=== PATIENT | female | born 1945 | race Caucasian/White ===

== ENCOUNTER 2022-07-10 08:25 | Day surgery (SDC) | payer MEDICARE, SELFPAY ==
[2022-07-04 14:47] VITALS: BMI 24.4
--- NOTE | 2022-07-05 12:49 | HO.ANESPROP2 ---
HPI - Anesthesia Eval Consult details Narrative: 68yo F for Right Laminectomy Lumbar Decompression L3-4, L4-5 Per 09/2021 cardiac office visit note. Stable Prinzmetal angina - rare and resolves promptly with NTG. Previous CP thought to be coronary vasospasm. All previous extensive w/u shows no CAD and no pulm htn. [facility] Past Medical History Medical History (Updated 07/10/22 @ 12:25 by ANDREEA Carmen) Anxiety Diastolic heart failure Elevated cholesterol Goiter History of GI bleed HTN (hypertension) Insomnia Iron deficiency anemia Low back pain Migraine Multiple nodules of lung Non-toxic multinodular goiter Osteoporosis Postnasal drip Pre-diabetes Prinzmetal angina Pulmonary hypertension Surgical History Surgical History (Updated 07/05/22 @ 11:28 by Rekha Aguilar RN) History of esophagogastroduodenoscopy (EGD) History of excision of mass Hx of blepharoplasty Hx of cardiac catheterization Hx of colonoscopy Social History Social History Are you a primary healthcare administration intern to a significant other at home: No Do you presently have visiting nurse or other home services: No Patient Tobacco Use Status: Never used Tobacco Meds Allergies Allergy/AdvReac Type Severity Reaction Status Date / Time No Known Allergies Allergy Verified 07/05/22 12:55 Home Medications Medication Instructions Recorded Confirmed Last Taken Type cholecalciferol (vitamin D3) 25 1,000 unit PO DAILY 07/04/22 07/04/22 Unknown History mcg (1,000 unit) capsule (Vitamin D3) cyanocobalamin (vitamin B-12) 500 500 mcg PO DAILY 07/04/22 07/04/22 Unknown History mcg tablet (Vitamin B-12) fluoxetine 20 mg capsule 20 mg PO BID 07/04/22 07/04/22 Unknown History lisinopril 2.5 mg tablet 2.5 mg PO DAILY 07/04/22 07/04/22 Unknown History multivitamin 1 tab PO DAILY 07/04/22 07/04/22 Unknown History nitroglycerin 0.4 mg sublingual mg sublingual 07/04/22 Unknown History tablet omeprazole 20 mg capsule,delayed 20 mg PO BID PRN Gastric Reflux 07/04/22 07/04/22 Unknown History release rosuvastatin 10 mg tablet 10 mg PO DAILY 07/04/22 07/04/22 Unknown History zolpidem 5 mg tablet 5 mg PO BEDTIME PRN Insomnia 07/04/22 07/04/22 Unknown History Vitamin B-2 07/05/22 07/05/22 Unknown History aspirin 81 mg tablet,delayed 81 mg PO DAILY 07/05/22 07/05/22 07/03/22 History release famotidine 20 mg tablet 20 mg PO BID 07/05/22 07/05/22 Unknown History fluticasone propionate 50 2 spray intranasal DAILY 07/05/22 07/05/22 Unknown History mcg/actuation nasal spray,suspension ibuprofen 600 mg tablet mg 07/05/22 07/03/22 History lidocaine 5 % topical patch 1 patch topical DAILY 07/05/22 07/05/22 Unknown History magnesium oxide 400 mg PO DAILY 07/05/22 07/05/22 Unknown History nitroglycerin 0.4 mg sublingual 0.4 mg sublingual Q5M PRN Chest 07/05/22 07/05/22 Unknown History tablet Pain Exam Exam Date and Time: July 05, 2022 1249 Height,Weight and Vital Signs: Height 5 ft Weight 56.699 kg Assessment and Plan Assessment Anesthesia Assessment: Chart Reviewed
[2022-07-10] VITALS (12 sets, daily range): BP systolic 111–139; BP diastolic 66–84; PULSE 64–79; RESP 16; TEMP 36.1–36.6; O2SAT 95–98
--- NOTE | 2022-07-10 | ECG_ITS ---
Test Reason : Pre-op Blood Pressure : / mmHG Vent. Rate : 068 BPM Atrial Rate : 068 BPM P-R Int : 186 ms QRS Dur : 094 ms QT Int : 410 ms P-R-T Axes : 054 021 051 degrees QTc Int : 435 ms Normal sinus rhythm Normal ECG No previous ECGs available Referred By: Sweta Mccormick Electronically Signed By:CARLA FREEMAN
--- NOTE | ~2022-07-10 | FL_ITS ---
EXAMINATION: XR FLUOROSCOPY WITH IMAGES CLINICAL INFORMATION: Laminectomy lumbar decompression right COMPARISON: MRI lumbar spine 11/20/2021 TECHNIQUE: Fluoroscopy Supervised By: Dr. Juan Ames. Fluoroscopy Time: Under 1 minute. Cumulative Dose: 2.52 mGy. DAP: 0.0424 Gycm2. Images: 1. FINDINGS: There is are metallic pointer and a cannula overlying posterior elements lower lumbar spine approximately L4-L5. There are degenerative disc changes with borderline grade 0-1 spondylolisthesis L4-L5 similar to the MR. FL/FL guidance in OR IMPRESSION: Fluoroscopy for neurosurgical procedure.
[2022-07-10 08:47] LABS: Hematocrit 38.8 % (37.0-47.0); Hemoglobin 12.9 g/dl (12.0-16.0); Mean Corpuscular HGB Conc 33.2 g/dl (31.0-35.0); Mean Corpuscular Volume 87.2 fL (80.0-98.0); Mean Platelet Volume 8.8 fL (9.4-12.3); Platelet Count 242 X10*3/uL (160-400); Red Blood Count 4.45 X10*6/uL (4.20-5.50); Red Cell Distribution Width 14.9 % (11.0-16.0); White Blood Count 5.7 X10*3/uL (4.8-10.8)
[2022-07-10] MEDS: methocarbamoL 750 MG TABLET PO (09:02)
[2022-07-10] MEDS: Gabapentin 300 MG CAPSULE PO (09:02)
[2022-07-10] MEDS: Lactated Ringers 1,000 ML 50 ML IVCONT (09:03)
[2022-07-10 09:08] LABS: Anion Gap 12 (12-20); Blood Urea Nitrogen 16 mg/dL (9-16); Calcium 9.3 mg/dL (8.4-10.2); Carbon Dioxide 24 mmol/L (22-29); Chloride 110 mmol/L (96-108); Creatinine Clr Calc Pharmacy 46.1; Estimated Glomerular Filt Rate > 60; Glucose Fasting 103 mg/dL (60-99); Potassium 4.1 mmol/L (3.3-5.1); Sodium 142 mmol/L (135-145)
--- NOTE | 2022-07-10 10:08 | P.CONAN_ITS ---
[facility] Past Medical History Medical History (Updated 07/04/22 @ 16:28 by Rekha Aguilar RN) Anxiety Diastolic heart failure Elevated cholesterol Goiter History of GI bleed HTN (hypertension) Insomnia Iron deficiency anemia Low back pain Migraine Multiple nodules of lung Non-toxic multinodular goiter Osteoporosis Postnasal drip Pre-diabetes Prinzmetal angina Pulmonary hypertension Family History Family history of problems with anesthesia: No Surgical History Surgical History (Updated 07/05/22 @ 11:28 by Rekha Aguilar, RN) History of esophagogastroduodenoscopy (EGD) History of excision of mass Hx of blepharoplasty Hx of cardiac catheterization Hx of colonoscopy History of Problems with Anesthesia: No Social History Social History Are you a primary respiratory care assistant to a significant other at home: No Do you presently have visiting nurse or other home services: No Patient Tobacco Use Status: Never used Tobacco Use of substances other than those prescribed or required for medical reasons: No Are you DNR?: No Advance Directives: No Advance Directives Information Provided: Yes Advance Directives on File: No Recently lost weight without trying: Yes How much weight loss: 2-13 pounds Meds Allergies Allergy/AdvReac Type Severity Reaction Status Date / Time No Known Allergies Allergy Verified 07/05/22 12:55 Active Medications: Current Medications Lactated Ringer's (Lr) 1,000 mls @ 50 mls/hr IVCONT .Q20H VICTORIA Last Admin: 07/10/22 09:03 Dose: 50 mls/hr Home Medications Medication Instructions Recorded Confirmed Last Taken Type cholecalciferol (vitamin D3) 25 1,000 unit PO DAILY 07/04/22 07/04/22 Unknown History mcg (1,000 unit) capsule (Vitamin D3) cyanocobalamin (vitamin B-12) 500 500 mcg PO DAILY 07/04/22 07/04/22 Unknown History mcg tablet (Vitamin B-12) fluoxetine 20 mg capsule 20 mg PO BID 07/04/22 07/04/22 Unknown History lisinopril 2.5 mg tablet 2.5 mg PO DAILY 07/04/22 07/04/22 Unknown History multivitamin 1 tab PO DAILY 07/04/22 07/04/22 Unknown History nitroglycerin 0.4 mg sublingual mg sublingual 07/04/22 Unknown History tablet omeprazole 20 mg capsule,delayed 20 mg PO BID PRN Gastric Reflux 07/04/2207/04 Unknown History release rosuvastatin 10 mg tablet 10 mg PO DAILY 07/04/22 07/04/22 Unknown History zolpidem 5 mg tablet 5 mg PO BEDTIME PRN Insomnia 07/04/22 07/04/22 Unknown History Vitamin B-2 07/05/22 07/05/22 Unknown History aspirin 81 mg tablet,delayed 81 mg PO DAILY 07/05/22 07/05/22 07/03/22 History release famotidine 20 mg tablet 20 mg PO BID 07/05/22 07/05/22 Unknown History fluticasone propionate 50 2 spray intranasal DAILY 07/05/22 07/05/22 Unknown History mcg/actuation nasal spray,suspension ibuprofen 600 mg tablet mg 07/05/22 07/03/22 History lidocaine 5 % topical patch 1 patch topical DAILY 07/05/22 07/05/22 Unknown History magnesium oxide 400 mg PO DAILY 07/05/22 07/05/22 Unknown History nitroglycerin 0.4 mg sublingual 0.4 mg sublingual Q5M PRN Chest 07/05/22 07/05/22 Unknown History tablet Pain Exam Exam Date and Time: July 10, 2022 1008 Height,Weight and Vital Signs: Height 5 ft Weight 56.699 kg Last Vital Signs Temp 96.9 F 07/10/22 08:56 Pulse 70 07/10/22 08:56 Resp 16 07/10/22 08:56 BP 127/84 07/10/22 08:56 Pulse Ox 97 07/10/22 08:56 O2 Del Method Room Air 07/10/22 08:56 Pertinent Lab Results Pertinent Lab Results: Laboratory Tests 07/10/22 07/10/22 08:41 08:41 WBC 5.7 RBC 4.45 Hgb 12.9 Hct 38.8 MCV 87.2 MCH 29.0 MCHC 33.2 RDW 14.9 Plt Count 242 MPV 8.8 L Absolute Nucleated RBC 0.000 Nucleated RBC % (auto) 0.0 Sodium 142 Potassium 4.1 Chloride 110 H Carbon Dioxide 24 Anion Gap 12 BUN 16 Creatinine 0.78 Estim Creat Clear Calc 46.1 Estimated GFR > 60 Fasting Glucose 103 H Calcium 9.3 Airway Mallampati Class: II TM Dist: >3cm Neck ROM: Limited Loose/Missing/Broken Teeth: No Heart: rrr Lungs: cta Assessment and Plan Assessment Anesthesia Assessment: Anesthesia Plan Discussed and Chart Reviewed Final Anesthetic Review Family History of Problems with Anesthesia: No History of Problems with Anesthesia: No NPO: Yes ASA Class: III Final Preanesthetic Review: No Changes in Pt Med Stat, Meds/Allgs Chart Reviewed, Consent Obtained/Reviewed and Anes Risks/Benef Reviewed Patient Risk: Intermediate Procedure Risk: Intermediate Anesthetic Plan Anesthetic Plan: GA and Agree w/ Assess. and Plan Disposition: Standard PACU
--- NOTE | 2022-07-10 12:24 | PM.DS ---
DS: Providers Provider Date of Service: 07/10/22 Date of discharge: 07/10/22 Primary care physician: Maria Teresa Cruz MD Admitting clinician: Juan Ames DS: Diagnosis Discharge Diagnosis (1) Lumbar stenosis: Status: Acute DS: Summary Time Spent with Patient Time attestation: Total time managing care of this patient today ____ minutes. Discharge coordination time: Less than 30 minutes Quality: Safe Use of Opioids Does Pt have an Active Cancer Diagnosis on the Problem List?: No Quality: Stroke Does the patient have a stroke diagnosis?: No Physical Exam Vital Signs: Vital Signs: Last Vital Signs Temp 96.9 F 07/10/22 08:56 Pulse 70 07/10/22 08:56 Resp 16 07/10/22 08:56 BP 127/84 07/10/22 08:56 Pulse Ox 97 07/10/22 08:56 O2 Del Method Room Air 07/10/22 08:56 BMI result Body Mass Index 24.4 DS: Data Data Completed and Pending Labs on day of discharge: Laboratory Results - last 24 hr 07/10/22 07/10/22 08:41 08:41 WBC 5.7 RBC 4.45 Hgb 12.9 Hct 38.8 MCV 87.2 MCH 29.0 MCHC 33.2 RDW 14.9 Plt Count 242 MPV 8.8 L Absolute Nucleated RBC 0.000 Nucleated RBC % (auto) 0.0 Sodium 142 Potassium 4.1 Chloride 110 H Carbon Dioxide 24 Anion Gap 12 BUN 16 Creatinine 0.78 Estim Creat Clear Calc 46.1 Estimated GFR > 60 Fasting Glucose 103 H Calcium 9.3 Discharge Plan Discharge Patient Disposition: Home, Self-Care Referrals: Maria Teresa Cruz MD [Primary Care Provider] - 1 Week Discharge Medications: New oxycodone 5 mg tablet 5 mg PO Q4H PRN (Reason: pain) Qty: 30 0RF Rx Instructions: Partial Fill upon patient request. docusate sodium [Colace] 100 mg capsule 100 mg PO BID Qty: 20 0RF oxycodone 5 mg tablet 5 mg PO Q4H PRN (Reason: pain) Qty: 30 0RF Rx Instructions: Partial Fill upon patient request. Continued multivitamin Tablet 1 tab PO DAILY cyanocobalamin (vitamin B-12) [Vitamin B-12] 500 mcg Tablet 500 mcg PO DAILY nitroglycerin 0.4 mg tablet, sublingual sublingual zolpidem 5 mg tablet 5 mg PO BEDTIME PRN (Reason: Insomnia) fluoxetine 20 mg capsule 20 mg PO BID lisinopril 2.5 mg tablet 2.5 mg PO DAILY cholecalciferol (vitamin D3) [Vitamin D3] 25 mcg (1,000 unit) Capsule 1,000 unit PO DAILY rosuvastatin 10 mg tablet 10 mg PO DAILY omeprazole 20 mg capsule,delayed release(DR/EC) 20 mg PO BID PRN (Reason: Gastric Reflux) aspirin 81 mg Tablet,Delayed Release (Dr/Ec) 81 mg PO DAILY famotidine 20 mg Tablet 20 mg PO BID lidocaine 5 % adhesive patch,medicated 1 patch topical DAILY ibuprofen 600 mg Tablet fluticasone propionate 50 mcg/actuation [place],Suspension 2 spray INTRANASAL DAILY Rx Instructions: administer into each nostril nitroglycerin 0.4 mg Tablet, Sublingual 0.4 mg SUBLINGUAL Q5M PRN (Reason: Chest Pain) Rx Instructions: do not exceed 3 doses per episode Vitamin B-2 magnesium oxide 400 mg magnesium Tablet 400 mg PO DAILY Discharge Orders: Discharge Order (Routine); Ordered 07/10/22 Ordered By: Bean Granados Diet: Advance to usual diet Activity on Discharge: As tolerated Activity Restrictions/Additional Instructions: After your spinal surgery we ask you to observe the following restrictions/guidelines: Activity: It is normal to feel some discomfort as you increase your activity, but that will improve with time. We ask you avoid heavy lifting or acitivities that cause pain. As a general rule, 8lbs is a safe limit for lifting right after surgery. Walk as much as you feel comfortable but not to exhaustion. You will feel extra tired the first few days after surgery. Stay well hydrated. It is OK to walk up and down stairs You may return to driving when you are off narcotics (such as vicodin, oxycodone, dilaudid, etc), and you are back to normal functional capacity. If you have any concerns please check with office before driving. Return to work is specific to each patient and each surgery, so please speak with your doctor/PA at first follow up. Please bring paperwork such as FMLA at that time if you need it filled out. Medications: We will give you a short supply of narcotics after surgery (usually one weeks worth). If you need more please call the office but do not use more than prescribed. You will need to give our office 48 hours notice if you need narcotics refilled and we do not fill narcotics on weekends or evenings. If you are on a narcotic, it is a good idea to take a stool softener such as colace or senna to avoid constipation If you take blood thinner such as aspirin, Plavix, Coumadin, Effient, Eliquis etc for conditions such as Afib, DVT, Pulmonary embolus, coronary disease, stents etc please speak with your surgeon about specific details as to when you can resume these medications. You can resume NSAIDs on post op day 1 (eg: Motrin, Naproxen, etc). Follow up: Please call the office, , after surgery to arrange a 3 week follow up for wound check. Wound Care: You may remove your dressing on the first day after surgery. You may leave open to air. Please do not remove the steri strips underneath. they will fall off on their own in one week. IT IS NORMAL FOR THE WOUND TO OOZE OR BE BLOODY FOR A FEW DAYS AFTER SURGERY. IF THIS HAPPENS JUST PLACE NEW DRESSING OVER IT TO AVOID STAINING CLOTHES. You may shower on post op day # 1 We ask that you do not let the water soak the wound. If it does get wet, just towel dry lightly. Please do not scrub your incision or place any type of chemical/ointment on the wound. No tub baths, pools or jacuzzis for one month. If you have any leaking or redness from your wound, or fevers, please call office
[2022-07-10] MEDS: oxyCODONE HCl Immed Release 5 MG TABLET PO (13:33)
--- NOTE | 2022-07-11 16:38 | P.OP_ITS ---
Operative Note Operative Note Date of Service: 07/10/22 Narrative: Diagnosis: Neurogenic claudication due to unilateral L3-4 and L4-5 spinal stenosis, right-sided Procedure: Right L3-4 and L4-5 hemilaminotomy, partial facetectomy and foraminotomy to decompress the thecal sac and exiting nerve roots with microscope. Surgeon: Juan Ames MD Stock Parts Inspector: Bean DORAN Description of procedure: This 77-year-old female who is suffering from right lumbar radiculopathy due to L3-4 and L4-5 spinal stenosis. Imaging also reviewed as an L3-4 and L4-5 spondylolisthesis. She was offered a unilateral decompression in an attempt to avoid a fusion. She is aware that an increase of the spondylolisthesis can occur. The procedures and complications were explained. She was brought to the operating room endotracheally intubated. She was turned in a prone position over Lucio frame. Prep and drape was done for tomorrow. The physician campus administrative assistant provided access. He made a mid lumbar incision followed by release of the paravertebral muscles on the right side to expose the L3-4 and L4-5 interspace. Hemostasis was done. The microscope was brought in. I took over the procedure. A right L3-L4 hemilaminotomy was done, including a partial facetectomy. The flavum ligament was opened and the hypertrophied ligament was removed to expose the underlying thecal sac. Significant compression of the thecal sac was encountered. The medial facetectomy was done to further decompress the exiting L4 nerve root in the lateral recess. The nerve root was followed into the foramen and no significant foraminal stenosis was seen. Then attention was turned to the L4-5 area where a similar procedure was performed. Again significant stenosis was encountered due to flavum ligament hypertrophy. The L5 nerve root was pushed medially but after removal of the flavum ligament the nerve was able to moving to its original lateral position. The microscope was removed. The physician campus administrative assistant provided hemostasis and closed incision in 2 layers after injection of lidocaine. All sponge and needle counts were correct. Patient was extubated and transported in a stable condition to recovery room. Anesthesia: General Blood loss: 40 cc Complications: None Disposition: PACU and discharge
== END 2022-07-10 15:10 | disposition home or self-care (01) ==
PROVIDERS: Nurse Practitioner; PCP Family Medicine; Visit Provider Neurological Surgery
PROC: (CPT 63047; principal; 2022-07-10 09:10)
DX: M48.062 Spinal stenosis, lumbar region with neurogenic claudication (principal); I11.0 Hypertensive heart disease with heart failure; I50.30 Unspecified diastolic (congestive) heart failure; I27.20 Pulmonary hypertension, unspecified; E78.00 Pure hypercholesterolemia, unspecified; I20.1 Angina pectoris with documented spasm; R91.8 Other nonspecific abnormal finding of lung field; R73.03 Prediabetes; F41.1 Generalized anxiety disorder; D50.9 Iron deficiency anemia, unspecified; Z79.82 Long term (current) use of aspirin; Z79.51 Long term (current) use of inhaled steroids; Z79.899 Other long term (current) drug therapy
CPT/HCPCS: 63047; 63048; 36415; 80048; 85027; 93005; J0131; J0690; J1100; J1885; J2370; J2405; J3010

== ENCOUNTER → 2022-07-31 12:52 | Outpatient (BNVA) | payer MEDICARE, SELFPAY | PROVIDERS: PCP Family Medicine; Visit Provider Neurological Surgery ==

== ENCOUNTER 2022-10-03 11:26 | Outpatient (AMB) | payer MEDICARE, BC, SELFPAY ==
--- NOTE | 2022-10-03 12:03 | A.SPINEOV_ITS ---
Intake Intake Visit Reasons: follow up Intake Note: Ms. Cadet is here today for a follow up. Position Description Manager Required: No Allergies No Known Allergies Allergy (Verified 07/31/22 13:14) Assessment & Plan Assessment & Plan (1) Status post lumbar spine surgery for decompression of spinal cord: Code(s): Z98.890 - Other specified postprocedural states Plan Dear colleague, On 10/03/2022, so for final postoperative visit your patient Suzanne Cadet. She underwent a lumbar decompression for right lumbar radiculopathy which has resolved. She has minor residual back pain that is much improved from preoperatively. She is allowed to get massage therapy. I do not think physical therapy is going to be beneficial as she is very active in her daily life. She briefly mentioned left arm tingling without pain. I think we should wait and see how that develops. Of course, she can come back to my clinic if a clear cervical radiculopathy or other symptoms develop. Thank you for letting me take care of your patient. Juan Ames MD, PhD Spine Fellowship Trained Neurosurgeon Director, [facility] Coding Level of Care Code Global (16400) Diagnoses Status post lumbar spine surgery for decompression of spinal cord Z98.890
== END 2022-10-03 12:18 | disposition home or self-care (01) ==
PROVIDERS: PCP Family Medicine; Visit Provider Neurological Surgery
DX: Z98.890 Other specified postprocedural states (principal)
CPT/HCPCS: 99024

== ENCOUNTER → 2022-10-03 11:26 | Outpatient (BNVA) | payer MEDICARE, BC, SELFPAY | PROVIDERS: Visit Provider Neurological Surgery ==